=== PATIENT | female | born 1990 | race Caucasian/White ===

== ENCOUNTER 2017-03-25 09:18 | Emergency (ER) | payer OTHER ==
[~2017-03-25] VITALS: Ht 157.5 cm; Wt 66.5 kg
[~2017-03-25 09:18] MED LIST: PREN-39 PO
[2017-03-25 09:23] VITALS: Ht 157.5 cm; Wt 66.5 kg
[2017-03-25] MEDS ORDERED: IBUPROFEN 600 MG TAB PO ONE (10:30)
--- NOTE | 2017-03-25 10:47 | RADRPT ---
PROCEDURE: XR Left Foot CLINICAL INDICATION: Left heel pain for 3 weeks TECHNIQUE: AP, oblique, and lateral radiographs were submitted. COMPARISON: None FINDINGS: Osseous structures: appear well mineralized and intact with no fracture or destructive process iden tified. Joint spaces: are well maintained, with no significant spurring, erosion or joint effusion evident. Soft tissues: appear unremarkable. IMPRESSION: Unremarkable left foot. Physician Shila Date Time Electronically viewed and signed by Telly Gomez Physician on 03/25/2017 10:46 /
[2017-03-25] MEDS ORDERED: IBUP-1542 PO (10:55)
--- NOTE | 2017-03-25 12:14 | ERD ---
ER Documentation Chief Complaint Date/Time DATE: 03/25/17 TIME: 12:12 Chief Complaint LEFT FOOT PAIN X3 WKS, DENIES INJURY OR TRAUMA HPI .27-year-old female presents with left-sided heel pain that occurred 3 weeks ago. She denies any trauma but reports it is worse when she is weightbearing or wearing any shoes. It is diffuse in the heel, achy, and increased swelling with Tylenol. She denies fevers ROS All systems reviewed and are negative except as per history of present illness. Medications Home Meds Active Scripts Ibuprofen* (Motrin*) 600 Mg Tab, 600 MG PO Q6, #30 TAB Prov:RETA DODGE PA-C 03/25/17 Reported Medications Vits W-Ca,Fe,Fa(<1MG) ( Vitamins) 1 Tab Tablet, 1 TAB PO DAILY for 7 Days 07/09/14 Allergies Allergies: Coded Allergies: Penicillins (Verified Allergy, Unknown, LIPS SWELLING, 06/02/14) PMhx/Soc History of Surgery: Yes (SCOLIOSIS SURGERY A CHILD/D&C) Anesthesia Reaction: Yes Hx Neurological Disorder: No Hx Respiratory Disorders: No Hx Cardiac Disorders: No Hx Psychiatric Problems: No Hx Miscellaneous Medical Probl: No Hx Alcohol Use: No Hx Substance Use: No Hx Tobacco Use: No Physical Exam Vitals Vital Signs Date Time Temp Pulse Resp B/P Pulse Ox O2 Delivery O2 Flow Rate FiO2 03/25/17 09:23 98.5 87 18 120/70 97 Physical Exam General: Well-developed, well-nourished. The patient appears in no acute distress. HEENT: Head is normocephalic, atraumatic. No scleral icterus. Neck: Supple. Nontender. Lungs: Clear to auscultation. Normal air movement. Heart: Regular rate and rhythm. S1 and S2 are normal. No murmurs, gallops, or rubs. Abdomen: Nondistended. Extremities: Tender to palpation at the left plantar aspect medial foot. There are no bony deformities, no warmth or erythema. She is able to weight-bear fully neurologic: Alert and oriented 3. No focal deficits. Normal speech and gait. Skin: Normal turgor. No rash or lesions. Results 24 hrs Current Medications Medications (Trade) Dose Ordered Sig/Tia Route PRN Reason Start Time Stop Time Status Last Admin Dose Admin Ibuprofen (Motrin) 600 mg ONCE ONCE PO 03/25/17 10:30 03/25/17 10:31 DC 03/25/17 11:23 Procedures/MDM X-ray Foot 3V Interpreted by me as well as radiologist: Bones: No fracture Joints: No dislocation Foreign body: None MDM: 27-year-old female presents with left-sided heel pain, patient's history and physical examination is consistent with plantar fasciitis. X-rays of the foot are negative for acute fracture, bone spur. She does not show any signs of infection, foreign body, dislocation, gout, septic joint. Departure Diagnosis: Primary Impression: Foot pain Condition: Good Patient Instructions: What Is Plantar Fasciitis? RETA DODGE PA-C Mar 25, 2017 12:14
== END 2017-03-25 11:26 | disposition home or self-care (01) ==
LOC: FTE 09:18
DX: M79.672 Pain in left foot (principal)
CPT/HCPCS: 73630; Z7502; Z7610

== ENCOUNTER 2017-08-10 11:35 | Emergency (ER) | END 2017-08-10 14:47 | disposition home or self-care (01) ==

== ENCOUNTER 2017-08-12 08:34 | Emergency (ER) | END 2017-08-12 15:50 | disposition home or self-care (01) ==

== ENCOUNTER 2017-08-15 08:14 | Emergency (ER) | END 2017-08-15 14:45 | disposition home or self-care (01) ==

== ENCOUNTER 2017-08-21 22:28 | Inpatient (IN) | END 2017-08-22 23:38 | disposition home or self-care (01) | DRG 770 ==

== ENCOUNTER 2018-01-20 14:11 | Emergency (ER) | END 2018-01-20 16:15 | disposition home or self-care (01) ==

== ENCOUNTER 2018-01-21 19:25 | Inpatient (IN) | END 2018-01-22 22:45 | disposition home or self-care (01) | DRG 775 ==

== ENCOUNTER 2018-07-05 07:33 | Day surgery (SDC) | END 2018-07-05 15:04 | disposition home or self-care (01) ==